=== PATIENT | female | born 1965 | race Caucasian/White ===

== ENCOUNTER 2023-12-03 17:00 | Inpatient (IN) | payer BC ==
[2023-12-03 19:00] LABS: HEMATOCRIT 37.4 % (34.2-48.2); HEMOGLOBIN 12.3 g/dL (11.4-15.5); MEAN CORPUSCULAR HEMOGLOBIN 29.7 pg (23.9-33.9); MEAN CORPUSCULAR HGB CONC 32.9 g/dL (31.9-34.8); MEAN CORPUSCULAR VOLUME 90.4 fL (76.7-100.5); MEAN PLATELET VOLUME 7.9 fL (7.1-12.4); PLATELET COUNT,PLT 100 x10(3)uL (151-488); RED BLOOD CELL COUNT 4.14 x10(6)uL (3.60-5.20); RED CELL DISTRIBUTION WIDTH 17.3 % (12.3-16.5); WHITE BLOOD CELL COUNT,WBC 11.3 x10-3/uL (3.0-10.3)
[2023-12-03 19:01] LABS: BLOOD UREA NITROGEN,BUN 15 mg/dL (7-18); BUN/CREATININE RATIO 21.4 (9-20); CALCIUM 7.8 mg/dL (8.6-10.2); CARBON DIOXIDE,CO2 29 mmol/L (21-32); CHLORIDE,CL 101 mmol/L (100-110); CREATININE 0.7 mg/dL (0.55-1.02); ESTIMATED GFR 100 mL/min (>60); GLUCOSE RANDOM 101 mg/dL (80-116); POTASSIUM,K 3.3 mmol/L (3.5-5.3); SODIUM,NA 140 mmol/L (135-145)
[2023-12-03 19:06] LABS: A/G RATIO 0.9; ALANINE AMINOTRANSFERASE,ALT 39 U/L (12-36); ALBUMIN 3.5 g/dL (3.5-5.2); ALKALINE PHOSPHATASE 186 IU/L (56-112); ASPARTATE AMNIOTRANSFERASE,AST 30 IU/L (5-25); BILIRUBIN TOTAL 0.7 mg/dL (0.1-1.3); PROTEIN TOTAL,TP 7.5 g/dL (6.0-8.0)
[2023-12-03] MEDS: cefTRIAXone 2 GM Vial IVPUSH ONE (19:30)
[2023-12-03] MEDS: Potassium Chloride 20 MEQ Tab.ER PO ONE ×2 (20:01→21:52)
[2023-12-03 20:10] LABS: BAND PERCENT MAN 3 % (0-6); LYMPHOCYTES PERCENT MAN 3 % (13-37); MONOCYTES PERCENT MAN 1 % (4-12); SEG NEUTROPHILS PERCENT MAN 93 % (46-82)
[2023-12-03] MEDS ORDERED: Zolpidem 5 MG Tab PO PRN (21:04)
[2023-12-03] MEDS ORDERED: Ondansetron 4 MG/2 ML SDV IV PRN (21:04)
[2023-12-03] MEDS ORDERED: Magnesium Hydroxide 400 MG/5 ML Susp 30 ML Cup PO PRN (21:04)
[2023-12-03] MEDS: Acetaminophen 500 MG Tab PO PRN (21:54)
[2023-12-03] MEDS: Potassium Chloride 20 MEQ Tab.ER ONE (21:57)
[2023-12-03] MEDS: VANCOmycin 1.75 GM/350 ML 1.75 GM in Premix Bag 1 BAG IV ONE (22:32)
[2023-12-04] MEDS: Loratadine 10 MG Tab PO ONE (00:42)
[2023-12-04] MEDS: diphenhydrAMINE 50 MG/ML SDV IVPUSH ONE ×2 (00:43→07:01)
[2023-12-04] MEDS: Famotidine 20 MG/2 ML SDV IVPUSH ONE (00:58)
[2023-12-04 07:04] LABS: BASOPHILS PERCENT AUTO 0.2 % (0.2-1.5); HEMATOCRIT 31.8 % (34.2-48.2); HEMOGLOBIN 10.8 g/dL (11.4-15.5); LYMPHOCYTES ABSOLUTE AUTO 0.7 x10-3/uL (1.0-4.4); LYMPHOCYTES PERCENT AUTO 8.4 % (18.4-52.1); MEAN CORPUSCULAR HEMOGLOBIN 30.4 pg (23.9-33.9); MEAN CORPUSCULAR HGB CONC 33.8 g/dL (31.9-34.8); MEAN CORPUSCULAR VOLUME 89.7 fL (76.7-100.5); MEAN PLATELET VOLUME 7.9 fL (7.1-12.4); MONOCYTES ABSOLUTE AUTO 0.5 x10-3/uL (0.3-1.0); MONOCYTES PERCENT AUTO 6.3 % (4.4-15.7); NEUTROPHILS PERCENT AUTO 85.1 % (30.8-76.2); PLATELET COUNT,PLT 80 x10(3)uL (151-488); RED CELL DISTRIBUTION WIDTH 17.2 % (12.3-16.5); WHITE BLOOD CELL COUNT,WBC 8.2 x10-3/uL (3.0-10.3)
[2023-12-04 07:07] LABS: BLOOD UREA NITROGEN,BUN 15 mg/dL (7-18); CALCIUM 7.7 mg/dL (8.6-10.2); CARBON DIOXIDE,CO2 25 mmol/L (21-32); CHLORIDE,CL 104 mmol/L (100-110); CREATININE 0.6 mg/dL (0.55-1.02); EST CRCL DRUG DOSING (CG) 91.96 mL/min; ESTIMATED GFR 104 mL/min (>60); GLUCOSE RANDOM 98 mg/dL (80-116); POTASSIUM,K 3.9 mmol/L (3.5-5.3); SODIUM,NA 139 mmol/L (135-145)
[2023-12-04 07:21] LABS: RED BLOOD CELL COUNT 3.54 x10(6)uL (3.60-5.20)
[2023-12-04] MEDS ORDERED: Venlafaxine 75 MG Cap.ER PO SCH (09:00)
[2023-12-04] MEDS ORDERED: Anastrozole 1 MG Tab PO SCH (09:00)
[2023-12-04] MEDS: Potassium Chloride 20 MEQ Tab.ER PO ONE (09:11)
[2023-12-04] MEDS: diphenhydrAMINE 50 MG/ML SDV IVPUSH PRN (12:17)
[2023-12-04] MEDS: VANCOmycin 1.5 GM/300 ML 1.5 GM in Premix Bag 1 BAG IV SCH (12:23)
[2023-12-04] MEDS: cefTRIAXone 2 GM Vial IVPUSH SCH (18:50)
[2023-12-04] MEDS: Sodium Chloride 0.9% 10 ML Syringe FLUSH PRN (18:57)
[2023-12-04] MEDS ORDERED: cefTRIAXone 2 GM Vial IVPUSH SCH (19:00)
[2023-12-04] MEDS: Calcium Carbonate 500 MG Tablet PO SCH (20:08)
[2023-12-05 06:29] LABS: HEMATOCRIT 32.2 % (34.2-48.2); HEMOGLOBIN 10.7 g/dL (11.4-15.5); MEAN CORPUSCULAR HEMOGLOBIN 30.1 pg (23.9-33.9); MEAN CORPUSCULAR HGB CONC 33.3 g/dL (31.9-34.8); MEAN CORPUSCULAR VOLUME 90.3 fL (76.7-100.5); MEAN PLATELET VOLUME 7.9 fL (7.1-12.4); PLATELET COUNT,PLT 87 x10(3)uL (151-488); RED BLOOD CELL COUNT 3.57 x10(6)uL (3.60-5.20); RED CELL DISTRIBUTION WIDTH 17.2 % (12.3-16.5); WHITE BLOOD CELL COUNT,WBC 5.4 x10-3/uL (3.0-10.3)
[2023-12-05 06:40] LABS: A/G RATIO 0.8; ALANINE AMINOTRANSFERASE,ALT 41 U/L (12-36); ALBUMIN 3.1 g/dL (3.5-5.2); ALKALINE PHOSPHATASE 158 IU/L (56-112); ASPARTATE AMNIOTRANSFERASE,AST 30 IU/L (5-25); BILIRUBIN TOTAL 0.5 mg/dL (0.1-1.3); BLOOD UREA NITROGEN,BUN 11 mg/dL (7-18); BUN/CREATININE RATIO 15.7 (9-20); CALCIUM 8.5 mg/dL (8.6-10.2); CARBON DIOXIDE,CO2 24 mmol/L (21-32); CHLORIDE,CL 105 mmol/L (100-110); CREATININE 0.7 mg/dL (0.55-1.02); EST CRCL DRUG DOSING (CG) 78.83 mL/min; ESTIMATED GFR 100 mL/min (>60); GLUCOSE RANDOM 92 mg/dL (80-116); PROTEIN TOTAL,TP 6.8 g/dL (6.0-8.0); SODIUM,NA 139 mmol/L (135-145)
[2023-12-05 06:53] LABS: BAND PERCENT MAN 2 % (0-6); LYMPHOCYTES PERCENT MAN 26 % (13-37); MONOCYTES PERCENT MAN 6 % (4-12); SEG NEUTROPHILS PERCENT MAN 66 % (46-82)
[2023-12-05 06:54] LABS: ANISOCYTOSIS FEW
[2023-12-05] MEDS: VANCOmycin 1 GM/200 ML 1 GM in Premix Bag 1 BAG IV SCH (11:30)
[2023-12-06 06:54] LABS: MEAN CORPUSCULAR HEMOGLOBIN 29.5 pg (23.9-33.9); MEAN CORPUSCULAR HGB CONC 33.2 g/dL (31.9-34.8); MEAN CORPUSCULAR VOLUME 88.8 fL (76.7-100.5); MEAN PLATELET VOLUME 7.7 fL (7.1-12.4); PLATELET COUNT,PLT 113 x10(3)uL (151-488); RED BLOOD CELL COUNT 4.06 x10(6)uL (3.60-5.20); RED CELL DISTRIBUTION WIDTH 17.5 % (12.3-16.5); WHITE BLOOD CELL COUNT,WBC 5.6 x10-3/uL (3.0-10.3)
[2023-12-06 07:02] LABS: A/G RATIO 0.8; ALANINE AMINOTRANSFERASE,ALT 48 U/L (12-36); ALBUMIN 3.3 g/dL (3.5-5.2); ALKALINE PHOSPHATASE 190 IU/L (56-112); ASPARTATE AMNIOTRANSFERASE,AST 34 IU/L (5-25); BILIRUBIN TOTAL 0.5 mg/dL (0.1-1.3); BLOOD UREA NITROGEN,BUN 19 mg/dL (7-18); BUN/CREATININE RATIO 27.1 (9-20); CALCIUM 9.4 mg/dL (8.6-10.2); CARBON DIOXIDE,CO2 27 mmol/L (21-32); CHLORIDE,CL 102 mmol/L (100-110); CREATININE 0.7 mg/dL (0.55-1.02); EST CRCL DRUG DOSING (CG) 78.83 mL/min; ESTIMATED GFR 100 mL/min (>60); GLUCOSE RANDOM 95 mg/dL (80-116); PROTEIN TOTAL,TP 7.4 g/dL (6.0-8.0); SODIUM,NA 139 mmol/L (135-145)
[2023-12-06 07:12] LABS: ANISOCYTOSIS FEW; BAND PERCENT MAN 1 % (0-6); LYMPHOCYTES PERCENT MAN 31 % (13-37); MONOCYTES PERCENT MAN 8 % (4-12); SEG NEUTROPHILS PERCENT MAN 60 % (46-82)
[2023-12-06] MEDS ORDERED: Acetaminophen 325 MG Tab PO PRN (11:38)
== END 2023-12-07 11:09 | disposition home or self-care (01) | DRG 383 ==
LOC: FB.ED 17:00 → FB.MS 18:38 → OBSVTOIN 12-04 14:00
PROVIDERS: ADMIT Internal Medicine; ATTEND Family Medicine
DX: L03.113 Cellulitis of right upper limb (principal); E83.51 Hypocalcemia; D84.9 Immunodeficiency, unspecified; D69.6 Thrombocytopenia, unspecified; C50.919 Malignant neoplasm of unspecified site of unspecified female breast; E87.6 Hypokalemia; R79.82 Elevated C-reactive protein (CRP); R79.89 Other specified abnormal findings of blood chemistry; Z92.21 Personal history of antineoplastic chemotherapy; Z92.3 Personal history of irradiation; Z90.11 Acquired absence of right breast and nipple; Z88.5 Allergy status to narcotic agent; Z79.899 Other long term (current) drug therapy
CPT/HCPCS: 36415; 80048; 80053; 80202; 83605; 85025; 86140; 87040; 87070; 87077; 87186; 96365; 96366; 96374; 96375; 96376; 99222; 99232; 99238; 99284-25; 99285; A9270-GY; G0378; J0696; J1200; J1642; J3370; J3490